=== PATIENT | female | born 1975 | race Two or more races ===

== ENCOUNTER 2017-10-22 10:58 | Day surgery (SDC) | payer OTHER ==
[~2017-10-22] VITALS: Ht 160 cm; Wt 75.6 kg
[~2017-10-22 10:58] MED LIST: ALPR0.25 PO; BUPIVACAINE/PF-EPI 0.25% 1:200K ONE; FLUO10CA13 PO
[2017-10-22 11:30] VITALS: BP 119/80
[2017-10-22] MEDS ORDERED: LACTATED RINGERS 1,000 ML IV SCH (11:40)
[2017-10-22 12:00] LABS: HCG UR SG 1.022 (1.003-1.030)
[2017-10-22] MEDS ORDERED: MIDAZOLAM 1 MG/ML, 2ML ONE (12:52)
[2017-10-22] MEDS ORDERED: FENTANYL PF 250 MCG/5ML ONE (12:52)
[2017-10-22] MEDS ORDERED: LIDOCAINE 4%, 4 ML SYR/CANN TP ONE (13:04)
[2017-10-22] MEDS ORDERED: PROMETHAZINE 25 MG/ML, 1ML IV PRN (13:30)
[2017-10-22] MEDS ORDERED: PROMETHAZINE 12.5 MG SUPP PR PRN (13:30)
[2017-10-22] MEDS ORDERED: FENTANYL PF 100 MCG/2ML IV PRN (13:30)
[2017-10-22] MEDS ORDERED: MEPERIDINE/PF 25MG/0.5ML IVPush PRN (13:30)
[2017-10-22] MEDS ORDERED: PROMETHAZINE 25 MG SUPP PR PRN (13:30)
[2017-10-22] MEDS ORDERED: ONDANSETRON ODT 8 MG PO PRN (13:30)
[2017-10-22] MEDS ORDERED: OXYcodone 5 MG/5 ML ORAL.SOL UDC PO PRN (13:30)
[2017-10-22] MEDS ORDERED: ACETAMINOPHEN 325 MG TABLET PO PRN (13:30)
[2017-10-22] MEDS ORDERED: MORPHINE SULFATE 4 MG/ML, 1ML IVPush PRN (13:30)
[2017-10-22] MEDS ORDERED: ONDANSETRON 2MG/ML, 2ML IV PRN (13:30)
[2017-10-22] MEDS ORDERED: LORazepam 2 MG/ML, 1ML IVPush PRN (13:30)
[2017-10-22] MEDS ORDERED: ONDANSETRON 2MG/ML, 2ML ONE (13:47)
[2017-10-22] MEDS ORDERED: PROPOFOL 10 MG/ML, 20ML ONE (13:47)
[2017-10-22] MEDS ORDERED: SUCCINYLCHOLINE 20 MG/ML, 10ML ONE (13:47)
[2017-10-22] MEDS ORDERED: CEFAZOLIN 1,000 MG ONE (13:47)
[2017-10-22] MEDS ORDERED: DEXAMETHASONE 4 MG/ML, 1ML ONE (13:47)
[2017-10-22] MEDS ORDERED: GLYCOPYRROLATE 0.2MG/1ML, 5ML ONE (13:47)
[2017-10-22] MEDS ORDERED: NEOSTIGMINE 1 MG/ML, 10ML ONE (13:47)
[2017-10-22] MEDS ORDERED: ROCURONIUM 10MG/ML,5ML ONE (13:47)
[2017-10-22] MEDS ORDERED: FENTANYL PF 100 MCG/2ML ONE (14:18)
[2017-10-22] MEDS ORDERED: ACETAMINOPHEN 650 MG/20.3 ML UDC ONE (14:18)
[2017-10-22] MEDS ORDERED: OXYcodone 5 MG/5 ML ORAL.SOL UDC ONE (14:18)
[2017-10-22] MEDS ORDERED: HYDROcodone/APAP 7.5-325MG/15ML UDC ONE (14:23)
[2017-10-22] MEDS ORDERED: HYDROcodone/APAP 7.5-325MG/15ML UDC PO PRN (14:30)
== END 2017-10-22 18:10 | disposition home or self-care (01) ==
LOC: OUT 10:58 → MERGE 13:00 → OUT 18:10
PROVIDERS: ATTEND Specialist
DX: N83.292 Other ovarian cyst, left side (principal); E78.00 Pure hypercholesterolemia, unspecified; N83.8 Other noninflammatory disorders of ovary, fallopian tube and broad ligament; F41.9 Anxiety disorder, unspecified; F17.210 Nicotine dependence, cigarettes, uncomplicated; Z90.49 Acquired absence of other specified parts of digestive tract; Z98.890 Other specified postprocedural states; Z87.891 Personal history of nicotine dependence; Z79.899 Other long term (current) drug therapy
CPT/HCPCS: 58662; 81025; 88305; J0330; J0690; J1100; J2250; J2405; J2704; J2710; J3010; J3490

== ENCOUNTER → 2018-06-03 | Outpatient (CLI) | payer OTHER ==
[~2018-06-03] MED LIST changes: -BUPIVACAINE/PF-EPI 0.25% 1:200K ONE
== END | disposition home or self-care (01) ==
LOC: CVU 12:32
PROVIDERS: ATTEND Internal Medicine Cardiovascular Disease
DX: I35.8 Other nonrheumatic aortic valve disorders (principal); F17.200 Nicotine dependence, unspecified, uncomplicated; Z72.89 Other problems related to lifestyle
CPT/HCPCS: 93306

== ENCOUNTER → 2020-04-20 | Outpatient (CLI) | payer OTHER ==
[2020-04-20 10:34] LABS: BASOPHILS % (AUTO) 1 % (0-1); EOSINOPHILS % (AUTO) 1 % (1-7); LYMPHOCYTES % (AUTO) 24 % (22-44); MEAN CORPUSCULAR HEMOGLOBIN 34.6 pg (27.0-34.8); MEAN CORPUSCULAR HGB CONC 34.2 g/dL (32.4-35.8); MEAN PLATELET VOLUME 7.8 fL (7.4-10.4); MONOCYTES % (AUTO) 10 % (2-9); NEUTROPHILS % (AUTO) 64 % (42-75); PLATELET COUNT 241 x10^3/uL (130-400); RED BLOOD COUNT 4.51 x10^6/uL (3.82-5.3); RED CELL DISTRIBUTION WIDTH 14.3 % (9.6-15.2)
[2020-04-20 10:36] LABS: MD NO
[2020-04-20 10:45] LABS: ALBUMIN 3.9 g/dL (3.4-5.0); BILIRUBIN, DIRECT 0.3 mg/dL (0.1-0.2)
[2020-04-20 11:11] LABS: BILIRUBIN,INDIRECT 1.2 mg/dL (0.0-2.0); BILIRUBIN,TOTAL 1.5 mg/dL (0.2-1.0); FOLATE LEVEL 16.4 ng/mL (3.1-17.5); TOTAL PROTEIN 8.3 g/dL (6.4-8.2)
== END | disposition home or self-care (01) ==
LOC: LAB 10:17
PROVIDERS: ATTEND Internal Medicine
DX: R94.5 Abnormal results of liver function studies (principal); E55.9 Vitamin D deficiency, unspecified; R53.83 Other fatigue; D75.89 Other specified diseases of blood and blood-forming organs
CPT/HCPCS: 36415; 80076; 82607; 82728; 82746; 83540; 83550; 85025; 86803

== ENCOUNTER → 2020-04-23 | Outpatient (CLI) | payer OTHER | END | disposition home or self-care (01) | LOC: RAD 08:34 | PROVIDERS: ATTEND Internal Medicine | DX: R94.5 Abnormal results of liver function studies (principal) | CPT/HCPCS: 76700 ==

== ENCOUNTER → 2020-04-26 | Outpatient (CLI) | payer OTHER | END | disposition home or self-care (01) | LOC: CFH 07:46 | PROVIDERS: ATTEND Internal Medicine | DX: S06.0X9S Concussion with loss of consciousness of unspecified duration, sequela (principal); W19.XXXS Unspecified fall, sequela | CPT/HCPCS: 70450 ==

== ENCOUNTER → 2020-05-02 | Outpatient (CLI) | payer OTHER | END | disposition home or self-care (01) | LOC: CVU 07:42 | PROVIDERS: ATTEND Nurse Practitioner Family | DX: I51.7 Cardiomegaly (principal); R03.0 Elevated blood-pressure reading, without diagnosis of hypertension; Z86.16 Personal history of COVID-19 | CPT/HCPCS: C8929; Q9957 ==

== ENCOUNTER 2020-06-08 09:36 | Outpatient (CLI) | payer OTHER ==
[2020-06-12 16:42] LABS: ANA SCREEN NEGATIVE (Negative)
== END 2020-06-08 23:59 | disposition home or self-care (01) ==
LOC: LAB 09:36
PROVIDERS: ATTEND Internal Medicine
DX: K76.9 Liver disease, unspecified (principal)
CPT/HCPCS: 36415; 82103; 82104; 86038; 86704; 86706; 86803; 87340

== ENCOUNTER → 2020-10-30 | Outpatient (CLI) | payer OTHER | END | disposition home or self-care (01) | LOC: CFH 07:45 | PROVIDERS: ATTEND Internal Medicine Cardiovascular Disease | DX: I42.9 Cardiomyopathy, unspecified (principal) | CPT/HCPCS: 93306; 93356 ==